=== PATIENT | male | born 1985 | race Caucasian/White ===

== ENCOUNTER 2020-10-05 19:34 | Emergency (ER) | payer OTHER, SELFPAY ==
--- NOTE | ~2020-10-05 | CT_ITS ---
EXAMINATION: CT LEFT SHOULDER CLINICAL INFORMATION: History of posterior shoulder dislocation COMPARISON: CT of left shoulder 03/30/2019. Plain film exam left shoulder today and 03/31/2019 TECHNIQUE: Axial images obtained through left shoulder. Coronal and sagittal reformatted images are performed at the CT scanner. FINDINGS: There is posterior dislocation of the humeral head relative to the glenoid. There is a old reverse Hill-Sachs compression deformity of the humeral head at the anterior side of the humeral head cortex. There is no fracture of the glenoid. Again noted is the exostosis of the proximal humeral shaft. CT/CT shoulder LT wo con IMPRESSION: Posterior dislocation of humeral head. There is an old reverse Hill-Sachs deformity of humeral head.
--- NOTE | ~2020-10-05 | XR_ITS ---
EXAMINATION: XR SHOULDER, LEFT CLINICAL INFORMATION: Shoulder dislocation. COMPARISON: Multiple prior studies. Most recent exam is a Left shoulder 03/31/2019 TECHNIQUE: Four views of the left shoulder. FINDINGS: There is no dislocation of the glenohumeral joint. The acromioclavicular joint is normal. Hill-Sachs deformity again noted in the humeral head unchanged since prior studies. Bony exostosis of the proximal shaft of the humerus redemonstrated unchanged since prior studies. XR/XR shoulder LT min 2V IMPRESSION: 1. No acute abnormality of the shoulder. 2. Stable chronic changes of old Hill-Sachs deformity of the humeral head and bony exostosis of the proximal humeral shaft.
[2020-10-05 20:23] VITALS: BMI 31.0
[2020-10-05 21:17] VITALS: BP 141/94; PULSE 82; RESP 16; TEMP 37.1; O2SAT 97
--- NOTE | 2020-10-05 21:22 | PC.NURSE ---
DR DE LEON AT BEDSIDE WITH PT TO EXAMINE LEFT SHOULDER.
--- NOTE | 2020-10-05 21:27 | ED.EXTPRO ---
HPI - Extremity Problem General Chief complaint: Extremity Injury, Upper Stated complaint: ?Shoulder dislocation Time Seen by Provider: 10/05/20 21:27 Source: patient Mode of arrival: ambulatory Limitations: no limitations History of Present Illness HPI Narrative: Rolled in bed and felt pain, he has had this before and needed a Ct to diagnosis dislocation MD Complaint: extremity pain Onset (ago): hour(s) Pain Consistency: constant Location: left and upper extremity Quality: sharp Relieving factors: nothing Exacerbating factors: nothing Associated symptoms: denies other symptoms Related Data Allergies Allergy/AdvReac Type Severity Reaction Status Date / Time Sulfa (Sulfonamide Allergy Mild UNKNOWN Unverified 03/31/20 15:33 Antibiotics) Erythromycin Allergy Unknown Uncoded 04/13/19 00:00 Review of Systems Constitutional: Constitutional: Reports no additional constitutional complaints Eyes: Eyes: Reports no additional eye complaints ENT: Denies dizziness Cardiovascular: Cardiovascular: Reports no additional cardiovascular complaints Respiratory: Respiratory: Reports as per HPI Gastrointestinal: Gastrointestinal: Reports no additional gastrointestinal complaints Musculoskeletal: Musculoskeletal: Reports no additional musculoskeletal complaints Integumentary/Breasts: Skin/Breast: Denies rash Neurologic: Reports system reviewed and no additional complaints, except as documented, Denies dizziness and Denies Sensory deficit (Neuro) Psychiatric: Psychiatric: Denies anxiety PMF Past Medical History Medical History (Updated 10/06/20 @ 01:03 by Jorden Singletary MD) Seizure Shoulder dislocation Social History Social History Alcohol intake: never Smoked in Last 30 Days: No Use of substances other than those prescribed or required for medical reasons: No Any prior treatment program specific to substance use: No Advance Directives: No Advance Directives Information Provided: Yes Physical Exam Vital Signs: Vital Signs: Last Vital Signs Temp 98 F 10/06/20 00:49 Pulse 88 10/06/20 00:49 Resp 20 10/06/20 00:49 BP 135/69 10/06/20 00:49 Pulse Ox 98 10/06/20 00:49 Body Mass Index 31.0 Neuro: Sensory Exam: No Sensory deficit (Neuro) Course Course Course Narrative: placed in sling Procedures Procedure Narrative Procedure Narrative: With traction counter traction, closed reduction performed conscious sedation: patient on monitor, CO2 monitoring received propofol for conscious sedation. Patient monitored for 30 minutes MDM - Extremity (Nontraumatic) Imaging Data shoulder CT: Radiologist's impression: posterior dislocation Discharge Plan Discharge Clinical Impression: Dislocation of shoulder region Qualifiers: Encounter type: initial encounter Laterality: left Qualified Code(s): S43.005A - Unspecified dislocation of left shoulder joint, initial encounter Patient Disposition: Home, Self-Care Instructions: Closed Reduction (ED), Shoulder Dislocation (ED) Referrals: Sima Whiteside MD [Physician] - 2 days
[2020-10-05 21:47] VITALS: RESP 22
[2020-10-05] MEDS: Morphine Sulfate 4 MG/ML CARTRIDGE 8 MG IVPUSH ×2 (21:47→22:48)
--- NOTE | 2020-10-05 23:21 | PC.NURSE ---
PT WAS UNABLE TO TOLERATE CT SO SECOND ORDER OF MORPHINE GIVEN THEN PT TAKEN TO CT SCAN. PT MOVED TO MAIN ED REPORT GIVEN TO BILLY GRAHAM.
[2020-10-06 00:34] VITALS: BP 135/69; PULSE 81; RESP 20; TEMP 36.6; O2SAT 98
[2020-10-06] MEDS: propofoL 200 MG/20 ML VIAL 50 MG IVPUSH ×3 (00:34→00:42)
[2020-10-06 00:49] VITALS: BP 135/69; PULSE 88; RESP 20; TEMP 36.6; O2SAT 98
[2020-10-06] MEDS: Ketorolac Tromethamine 30 MG/ML VIAL IVPUSH (01:07)
== END 2020-10-06 02:01 | disposition home or self-care (01) ==
PROVIDERS: Emergency Provider Emergency Medicine
DX: S43.005A Unspecified dislocation of left shoulder joint, initial encounter (principal); M25.512 Pain in left shoulder; X58.XXXA Exposure to other specified factors, initial encounter; Y93.9 Activity, unspecified; Y92.9 Unspecified place or not applicable; Y99.9 Unspecified external cause status
CPT/HCPCS: 23655; 73030; 73200; 96374; 96375; 96376; 99152; 99153; 99284; 99285; J1885; J2270

== ENCOUNTER → 2020-10-11 14:06 | Outpatient (BNVA) | payer OTHER, SELFPAY | PROVIDERS: Visit Provider Physician Assistant ==

== ENCOUNTER 2020-10-18 13:05 | Outpatient (REF) | payer OTHER, SELFPAY ==
--- NOTE | ~2020-10-18 | FL_ITS ---
EXAMINATION: XR ARTHROGRAM SHOULDER, LEFT CLINICAL INFORMATION: Instability COMPARISON: Previous x-ray and CT 10/05/2020 TECHNIQUE/FINDINGS: Procedure and risks and benefits including bleeding and infection were discussed with the patient and informed consent was obtained. The left shoulder was prepped and draped in the usual sterile fashion. The skin and soft tissues were anesthetized with 1% lidocaine plain. Using a 22-gauge spinal needle and fluoroscopic guidance, access to the left shoulder joint was obtained. 1 to 2 mL of Omnipaque 300 contrast was injected fluoroscopically confirming adequate placement in the joint space. Subsequently, a mixture of dilute gadolinium mixed with saline and 1% lidocaine plain was injected into the left shoulder joint pre-MRI. FLUOROSCOPY TIME: 0.5 minutes DOSE AREA PRODUCT: 1.5 clark per centimeter squared. 1 saved fluoroscopic image. FL/FL arthrogram shoulder LT IMPRESSION: Left shoulder pre-MRI arthrogram.
--- NOTE | ~2020-10-18 | MR_ITS ---
EXAMINATION: MR SHOULDER WITH CONTRAST, LEFT CLINICAL INFORMATION: Left shoulder instability. COMPARISON: CT 10/05/2020. TECHNIQUE: MRI of the shoulder was performed following the intra-articular administration of a dilute gadolinium-containing solution (arthrogram) on a high-field scanner. FINDINGS: ROTATOR CUFF: Intact. No muscle atrophy or fatty infiltration. There is edema of the teres minor muscle and inferior aspect of the infraspinatus muscle posterior to the joint compatible with strain/mild partial tearing as a result of the prior posterior dislocation. BICEPS: Normal. CORACOACROMIAL ARCH: The undersurface of the acromion is laterally downsloping with no subacromial spur. The acromioclavicular joint is normal. LABRUM/CAPSULE: There is undersurface tearing of the posterior labrum which extends from the 10 o'clock to the 5 o'clock position. GLENOHUMERAL JOINT/MARROW: The posterior dislocation demonstrated on the CT has been reduced. There is a large reverse Hill-Sachs deformity at the anteromedial aspect of the humeral head. Mild residual bone marrow edema. MR/MR shoulder LT w con IMPRESSION: The posterior dislocation has been reduced. There is a large reverse Hill-Sachs deformity with mild marrow edema. There is undersurface tearing of the posterior labrum. Strain/contusion of the teres minor and inferior infraspinatus muscles posterior to the glenohumeral joint. No rotator cuff tendon tear.
== END 2020-10-18 13:06 | disposition home or self-care (01) ==
LOC: HO.XRAY 13:05
PROVIDERS: Visit Provider Physician Assistant
DX: M25.312 Other instability, left shoulder (principal)
CPT/HCPCS: 23350; 73040; 73222; A9585

== ENCOUNTER → 2020-10-27 10:55 | Outpatient (BNVA) | payer OTHER, SELFPAY | PROVIDERS: Visit Provider Physician Assistant ==

== ENCOUNTER 2021-01-02 17:00 | Outpatient (RCR) | payer OTHER, SELFPAY ==
--- NOTE | 2020-11-14 17:59 | MHC.PT.EP ---
[facility] [place] Office [place] Office [place] Office [address] Estevan Hsu [address] [phone] F: [phone] F: [phone] F: [phone] F: [phone] Physical Therapy Plan of Care Date of Evaluation: Date of Surgery: NA Diagnosis: Other instability of L shoulder Assessment: 35 year old male referred for other instability of L shoulder Pt reports of having first shoulder dislocation about a year back following an episode of seizure. He has had 6 episode of posterior dislocation after in the last 1 year. On PT examination pt presents with no pain, gross shoulder ROM WNL, decreased scap muscle strength, altered posture, and mild tightness with shoulder ER. He would benefit from skilled PT to address the aforementioned impairments so as to increase his tolerance to activities and return to PLOF. He is motivated to participate in therapy. Frequency and Duration: The patient will be seen 2/week for 5 weeks. Short Term Goals: 1. Pt will be able to move shoulder through all planes of motion without any complaints of tightness so as to enable him to reach over head and behind his back in 3 weeks. Fdc Goals: 1. Pt will demonstrate an increase in muscle strength by 1 grade which will enable him to reach acorss his shoulder and behind his back without apprehension in 4 weeks. 2. Pt will be independent with HEP for symptom management and maintenance following d/c in 5 weeks. Treatment Plan: Modalities to reduce pain, spasms and effusion. Manual therapy to restore motion and function. Therapeutic exercise to improve strength and flexibility. Neuromuscular re-education for posture and balance. Therapeutic activities to return to functional activities of daily living. Electronically signed by: Naomy Cho, PT, DPT Please sign and return to therapist. Thank you for your referral.
--- NOTE | 2021-01-07 13:24 | MHC.PT.DC ---
[facility] [place] Office [place] Office [place] Office [address] [phone] F: [phone] F: [phone] F: [phone] F: [phone] Physical Therapy Discharge Report Diagnosis: Other instability of L shoulder Date of Surgery: NA Date of Evaluation: 11/14/20 Date of Discharge: 01/07/21 Treatments to Date: 11 Cancellations to Date: 0 No Shows to Date: 0 Discharge Status: Achieved Goals Improved Function Independent with HEP Discharge Summary: [place] has achieved all goals set for him and has returned to PLOF. He has therefore been d/c from PT. Electronically signed by: Naomy Cho PT DPT Please sign and return to therapist. Thank you for your referral.
== END 2021-01-07 13:25 | disposition home or self-care (01) ==
LOC: HO.PT 17:00
PROVIDERS: Visit Provider Physician Assistant
DX: M25.312 Other instability, left shoulder (principal)
CPT/HCPCS: 97110; 97112; 97161; 97530

== ENCOUNTER 2024-03-19 07:58 | Outpatient (AMB) | payer BC, SELFPAY ==
--- NOTE | 2024-03-19 08:09 | MHC.PC.OV ---
Vital Signs 03/19/24 08:11 Height 6 ft Weight 196 lb BMI 26.6 BP 112/72 Blood Pressure Location Lt brachial Position Sitting Intake Visit Reasons: New patient Storm Door Maker Required: No Accompanied by: Self / Same As Patient Allergies Sulfa (Sulfonamide Antibiotics) Allergy (Mild, Verified 03/19/24 08:17) UNKNOWN Erythromycin Allergy (Unknown, Uncoded 03/19/24 08:17) rash Medication List - Last Reconciled 03/19/24 by Stevan Beasley PA-C No Known Home Meds Tobacco use date assessed: 03/19/24 Dental Screening Dental Screen Date: 03/19/24 Did you have a dental visit in the last 12 months?: No Did you have a dental problem in the last 6 months where you did not have access to dental care?: No Was dental information given to patient?: Patient has dentist HPI New patient HPI Details Patient is a 31 year male here today for a new patient visit. Reports having a sz in 2019, had neurology followup at the time. Though no significant findings found. Concerns--> He reports over the last 2 months having Bright red blood per rectum. He denies any abdominal pain, weight, fevers. He also reports he has a problem with earwax buildup in both of his ears. usually has to go to urgent care and his ears cleaned out once a year. He also complains about bilateral thumb pain particularly when using his hands to work out or do physical work. .. Anxiety: he does report suffering with some anxiety and grief over the loss of his father. He would like to be set up with mental health therapy to help him with his anxiety. Vaccines: Up-to-date with COVID vaccine, considering this use flu vaccine, needs tetanus vaccine [facility] Medical History Shoulder dislocation Surgical History S/P medial meniscal repair Family History (Updated 03/19/24 @ 08:22 by Stevan Beasley PA-C) Mother No problems noted. Father CHF (congestive heart failure) Social History (Updated 03/19/24 @ 08:22 by Stevan Beasley PA-C) Housing: House Alcohol intake: current Alcohol intake frequency: a few times a month Alcohol type: beer Patient Tobacco Use Status: Current someday Tobacco user Tobacco use type: Cigarette e-Cigarette/Vaping Use: Never Used Second Hand Smoke Exposure: No Substance Use Type: Marijuana service: No Current occupational status: employed Current occupation: DPW/ left handed Current occupational exposures/hazards: No Cognitive needs: No Hearing needs: No Vision needs: No Questionnaire PHQ-9 Over the last 2 weeks, how often have you been bothered by any of the following problems? 1. Little interest or pleasure in doing things: not at all 2. Feeling down, depressed, or hopeless: several days 3. Trouble falling or staying asleep, or sleeping too much: several days 4. Feeling tired or having little energy: not at all 5. Poor appetite or overeating: not at all 6. Feeling bad about yourself - or that you are a failure or have let yourself or your family down: several days 7. Trouble concentrating on things, such as reading the newspaper or watching television: not at all 8. Moving or speaking so slowly that other people could have noticed. Or the opposite - being so fidgety or restless that you have been moving around a lot more than usual: not at all 9. Thoughts that you would be better off or of hurting yourself in some way: not at all Total score: 3 Depression Screening Interpretation: Positive Depression Screening Follow-up: Existing condition Depression Screening Done: Yes 09876 - PHQ-9 Billing: Yes Source: Developed by Drs. Kuldip Branch, Gladys Judge, Melo Hall and colleagues, with an educational yamilet from [employer]. Thrive Questionnaire Date Thrive assessed: 03/19/24 I am a: Patient What is your living situation today?: I choose not to answer this question Within the past 12 months, did the food you bought not last and you didn't have the money to get more?: Never true Within the past 12 months, did you worry whether your food would run out before you got money to buy more?: Never true Do you have trouble paying for medicines?: No Do you have trouble getting transportation to medical appointments?: No Do you have trouble paying your heating and electricity bill?: No Do you have trouble taking care of your child, family member or friend?: No Do you have trouble with day-to-day activities such as bathing, preparing meals, shopping, managing finances, etc.?: No Are you currently unemployed and looking for a job?: No Are you interested in more education?: Yes Please select the resources that you would like help with: Job search/training Currently or been in a relationship where the following occur: No concerns reported THRIVE Score: 0 AUDIT C Alcohol Use Questionnaire (AUDIT-C) 1. How often do you have a drink containing alcohol?: 2-4 times a month 2. How many drinks containing alcohol do you have on a typical day when you are drinking?: 7 to 9 3. How often do you have six or more drinks on one occasion?: Monthly Total Score: 7 SANTINO-7 AMB Questionnaire SANTINO-7 Date SANTINO - 7 assessed: 03/19/24 Feeling nervous, anxious, or on edge: 1 = Several days Not being able to stop or control worryin = Several days Worrying too much about different things: 1 = Several days Trouble relaxin = Several days Being so restless that it is hard to sit still: 0 = Not at all Becoming easily annoyed or irritable: 1 = Several days Feeling afraid as if something awful might happen: 1 = Several days Total SANTINO-7 score (0-4 normal; 5-9 mild; 10-14 moderate; 15-21 severe): 6 Source: Developed by Drs. Kuldip Branch, Gladys Judge, Melo Hall and colleagues, with an educational yamilet from [employer] SANTINO-7 Assessment Billing SANTINO-7 Assessment Tool: SANTINO-7 Assessment 58200 Review of Systems Const Denies headache(s) Eyes Denies loss of vision ENT Denies vertigo, Denies dizziness, Denies headache(s) and Denies sore throat Card Denies chest pain, Denies leg edema and Denies lightheadedness Resp Denies cough, Denies hemoptysis and Denies wheezing GI Denies abdominal pain, Denies melena, Denies constipation, Denies diarrhea and Denies vomiting Denies dysuria, Denies urinary frequency and Denies urinary urgency Musc Denies arthralgias, Denies joint swelling, Denies numbness and Denies tingling Neuro Denies Abnormal speech present, Denies behavioral changes, Denies vertigo, Denies dizziness, Denies headache(s), Denies loss of vision, Denies memory loss, Denies numbness and Denies tingling Psych Denies anxiety, Denies behavioral changes, Denies depression, Denies memory loss and Denies panic attacks Simon/Lymph Denies easy bleeding and Denies easy bruising Aller/Immun Denies wheezing Physical exam (Primary Care) Vital Signs: Last Vital Signs BP 112/72 03/19/24 08:11 BMI result Body Mass Index 26.6 Tobacco/Smoking Status: Tobacco use Status Tobacco use date assessed 03/19/24 03/19/24 08:16 Patient Tobacco Use Status Current someday Tobacco 03/19/24 08:22 Tobacco use type Cigarette 03/19/24 08:22 e-Cigarette/Vaping Use Never Used 03/19/24 08:22 PHQ-9: PHQ-9 Score PHQ-9: Total score 3 03/19/24 09:13 Depression Screening Interpretation: Positive Depression Screening Follow-up: Existing condition Thrive Assessment: Date of Thrive Assessment Date Thrive assessed 03/19/24 03/19/24 08:16 Currently or been in a relationship where the following occur: No concerns reported Const General: healthy appearing, no acute distress, alert and awake Nutritional Appearance: well nourished Orientation/consciousness: oriented to person, oriented to place and oriented to time HENMT Ears: TM's normal bilaterally General nose exam: Normal nasal mucous membranes and turbinates present Eyes Conjunctivae: conjunctivae normal Sclerae: sclerae normal Pupils: Equal, round and reactive pupils present Neck Neck: Yes no lymphadenopathy and Yes no JVD Thyroid: Thyroid normal Carotids: no bruits Resp Effort & Inspection: normal respiratory effort and not tachypneic Auscultation: no crackles, no rales, no rhonchi and no wheezes Cardio Rate: regular rate Rhythm: regular rhythm Heart sounds: no murmurs and normal S1 and S2 GI Palpation (GI): Soft to palpation, nontender, no hepatomegaly and no splenomegaly Auscultation: normal bowel sounds Skin General skin exam: no rashes or lesions noted and dry skin Neuro General: oriented to person, oriented to place and oriented to time Cranial nerves: Yes Equal, round and reactive pupils present Speech: No Abnormal speech present Gait exam (Neuro): Normal gait present Motor exam (neuro): no tremor noted Extrem Right upper extremity: full ROM Left upper extremity: full ROM Right lower extremity: full ROM; no edema Left lower extremity: full ROM; no edema Psych Mental Status: mental status grossly normal Speech and movement: Normal speech and movement present Affect: normal affect Attitude: cooperative Thought process: Normal thought process present Office Procedures Cerumen Removal From which ear canal was the cerumen removed: bilateral Removal: irrigation and otoscope w/curette Notes: patient tolerated procedure well 08322-[id number] Irrigation/Lavage Immunizations Boostrix Tdap 2.5 Lf unit-8 mcg-5 Lf/0.5 mL intramuscular syringe Performing Provider: Stevan Beasley PA-C [facility] Administered by: ZAFAR Dickerson on 03/19/24 09:11 Dose Route Admin Location Dispensed Lot Number Expiration Date NDC Turbine Attendant 0.5 mL IM Left Deltoid 0.5 mL [id number] 04/05/26 71829-886-21 [employer] VIS Given Date VIS Provided VIS Publication Date 03/19/24 Single Vaccine 21 Eligibility Eligibility Date Funding Source Not [facility] Eligible 03/19/24 Private Assessment and Plan Assessment & Plan (1) Bright red blood per rectum: Code(s): K62.5 - Hemorrhage of anus and rectum Plan: He does report having some bright red blood per rectum when having a bowel movement over the last 2 months. He denies any abdominal pain, rapid weight loss, fevers chills. Explained to patient that this may likely be internal hemorrhoids and should use stool softeners and try Sitz baths. He does have a family history of cancer and would like further investigation into the bright red blood per rectum. (2) Screening for diabetes mellitus (DM): Code(s): Z13.1 - Encounter for screening for diabetes mellitus (3) Low hemoglobin: Code(s): D64.9 - Anemia, unspecified Plan: Has a history of low hemoglobin in 2019, will recheck his CBC. (4) SANTINO (generalized anxiety disorder): Code(s): F41.1 - Generalized anxiety disorder Plan: Patient's SANTINO-7 score positive for anxiety. He is interested in being set up with a mental health therapist to work with him on his anxiety and grief. Of note did lose his father a few years ago which has caused him some distress. (5) Bilateral hand pain: Code(s): M79.641 - Pain in right hand; M79.642 - Pain in left hand Plan: Reports bilateral hand pain. Will willing to get x-rays of his hands evaluate for osteo versus inflammatory arthritis. Orders: Orders XR hand RT 2V 03/19/24 M79.641 - Pain in right hand, M79.642 - Pain in left hand Comprehensive [place]. Panel Fast 03/19/24 Z13.1 - Encounter for screening for diabetes mellitus Complete Blood Count no Diff 03/19/24 D64.9 - Anemia, unspecified TDaP Immunization 03/19/24 Z23 - Encounter for immunization XR hand LT 2V 03/19/24 M79.641 - Pain in right hand, M79.642 - Pain in left hand Referrals Counseling Referral F41.1 - Generalized anxiety disorder Gastroenterology Referral K62.5 - Hemorrhage of anus and rectum Coding Level of Care Code New Pt Level 4 (80012) Diagnoses Bright red blood per rectum K62.5 Screening for diabetes mellitus (DM) Z13.1 Low hemoglobin D64.9 SANTINO (generalized anxiety disorder) F41.1 Bilateral hand pain M79.641; M79.642 CPT Codes Office Procedure - CPT: 28044-Ghc Irrigation/Lavage ([id number]) Additional Codes SANTINO-7 Assessment Billing - SANTINO-7 Assessment Tool: SANTINO-7 Assessment 23510 ([id number])
[2024-03-19 08:11] VITALS: BP 112/72; BMI 26.6
== END 2024-03-19 10:23 | disposition home or self-care (01) ==
PROVIDERS: PCP Physician Assistant; Visit Provider Physician Assistant
DX: H61.23 Impacted cerumen, bilateral (principal); Z23 Encounter for immunization
CPT/HCPCS: 69209; 90471; 90715; 99204

== ENCOUNTER 2024-03-19 09:15 | Outpatient (REF) | payer BC, SELFPAY ==
[2024-03-19 10:29] LABS: Mean Corpuscular HGB Conc 33.3 g/dl (31.0-36.0); Mean Corpuscular Hemoglobin 31.1 pg (27.0-33.0); Mean Corpuscular Volume 93.2 fL (80.0-98.0); Platelet Count 239 X10*3/uL (160-400); Red Blood Count 5.15 X10*6/uL (4.60-5.80); Red Cell Distribution Width 12.5 % (11.0-16.0); White Blood Count 5.8 X10*3/uL (4.8-10.8)
[2024-03-19 10:57] LABS: Alanine Aminotransferase 34 U/L (0-40); Albumin Level 4.4 g/dL (3.5-5.0); Alkaline Phosphatase 46 U/L (39-117); Anion Gap 12 (12-20); Aspartate Amino Transferase 27 U/L (5-37); Blood Urea Nitrogen 14 mg/dL (9-16); Calcium 9.7 mg/dL (8.4-10.2); Carbon Dioxide 28 mmol/L (22-29); Chloride 105 mmol/L (96-108); Estimated Glomerular Filt Rate > 60; Glucose Fasting 93 mg/dL (60-99); Potassium 3.9 mmol/L (3.3-5.1); Sodium 141 mmol/L (135-145); Total Protein 7.2 g/dL (6.5-8.0)
== END 2024-03-19 09:16 | disposition home or self-care (01) ==
LOC: HO.LAB 09:15
PROVIDERS: PCP Physician Assistant; Visit Provider Physician Assistant
DX: D64.9 Anemia, unspecified (principal); Z13.1 Encounter for screening for diabetes mellitus
CPT/HCPCS: 36415; 80053; 85027

== ENCOUNTER 2024-06-10 12:42 | Outpatient (AMB) | payer BC, SELFPAY ==
--- NOTE | 2024-06-10 12:44 | MHC.OFFVIS ---
Vital Signs 06/10/24 12:45 Height 6 ft Weight 197 lb 8.547 oz BMI 26.8 BP 126/68 Blood Pressure Location Rt brachial Position Sitting Pulse 55 Intake Visit Reasons: Hemorrhaging of the anus -- Initial Intake Note: Patient referred for consistent blood on stool. Feels like there's a growth that comes down when having BM. Reports no hx of hemorrhoids. Denies nausea, vomiting. Education Coordinator Required: No Accompanied by: Self / Same As Patient Allergies Sulfa (Sulfonamide Antibiotics) Allergy (Mild, Verified 06/10/24 12:51) UNKNOWN Erythromycin Allergy (Unknown, Uncoded 06/10/24 12:51) rash HPI Comments Details: 39 y.o M with PMH of who is here for rectal bleeding. Reports started almost 2 months ago. Does note that correlates with straining to defecate or with hard stool. Happens >50% of BMs. No rectal pain or pressure. No abd pain, N,V, rectal pressure or pain. No hx of anal intercourse. No NSAID use, smokes occ. No fam hx of CRC. Labs reviewed, no anemia. [facility] Medical History Shoulder dislocation Surgical History S/P medial meniscal repair Family History (Updated 03/19/24 @ 08:22 by Stevan Beasley PA-C) Mother No problems noted. Father CHF (congestive heart failure) Social History (Updated 03/19/24 @ 08:22 by Stevan Beasley PA-C) Housing: House Alcohol intake: current Alcohol intake frequency: a few times a month Alcohol type: beer Patient Tobacco Use Status: Current someday Tobacco user Tobacco use type: Cigarette e-Cigarette/Vaping Use: Never Used Second Hand Smoke Exposure: No Substance Use Type: Marijuana service: No Current occupational status: employed Current occupation: DPW/ left handed Current occupational exposures/hazards: No Cognitive needs: No Hearing needs: No Vision needs: No Review of Systems Const All systems reviewed & are unremarkable except as noted in HPI and below Physical Exam Vital Signs: Last Vital Signs Pulse 55 06/10/24 12:45 BP 126/68 06/10/24 12:45 BMI result Body Mass Index 26.8 No apparent distress Nonicteric Abdomen soft, nondistended rectal: one small ext hemorrhoid, large internal hemorrhoids on digital exam Alert and oriented x3, normal gait Assessment & Plan Assessment & Plan (1) Bright red blood per rectum: Code(s): K62.5 - Hemorrhage of anus and rectum Category: Medical (2) Internal hemorrhoids: Code(s): K64.8 - Other hemorrhoids Category: Medical Plan Overall presentation consistent with outlet bleeding likely 2/2 hemorrhoids based on exam. Other ddx includes large friable polyp, mass, SURS. Plan: - Avoid constipation and straining. Can take OTC senna or miralax to manage constipation. - avoid lifting heavy weights - increase hydration and fiber intake - anusol supp x 10-14 days - no red flags to warrant urgent colo at this time but can be considered if sx persist despite the above or bleeding worsens. Follow up in 2 months Medications: New hydrocortisone 2.5% 1 appl [place] BEDTIME 14 days PRN 30 grams 0RF hemorrhoids Coding Level of Care Code New Pt Level 4 (94524) Diagnoses Bright red blood per rectum K62.5 Internal hemorrhoids K64.8
[2024-06-10 12:45] VITALS: BP 126/68; PULSE 55; BMI 26.8
== END 2024-06-10 13:19 | disposition home or self-care (01) ==
PROVIDERS: PCP Physician Assistant; Visit Provider Internal Medicine
DX: K62.5 Hemorrhage of anus and rectum (principal); K64.8 Other hemorrhoids
CPT/HCPCS: 99204